=== PATIENT | female | born 1950 | race Caucasian/White ===

== ENCOUNTER 2017-11-12 00:14 | Emergency (ER) | payer MEDICARE ==
[2017-11-12 00:18] VITALS: TEMP 97.7
--- NOTE | 2017-11-12 01:04 | XR ---
EXAMINATION TYPE: XR knee complete LT DATE OF EXAM: 11/12/2017 COMPARISON: NONE HISTORY: Pain TECHNIQUE: 3 views FINDINGS: There is spurring of the femoral and tibial condyles. I see no fracture nor dislocation. Th ere is no significant joint space narrowing. IMPRESSION: Hypertrophic degenerative spur formation. No fracture.
--- NOTE | 2017-11-12 01:05 | XR ---
EXAMINATION TYPE: XR tibia fibula LT DATE OF EXAM: 11/12/2017 COMPARISON: NONE HISTORY: Pain TECHNIQUE: 4 views FINDINGS: There is a large plantar calcaneal spur. Tibia and fibula appear intact. There is spurring at the knee joint. I see no fracture. IMPRESSION: Calcaneal spurring. Osteoarthritis at the knee joint. No fracture seen.
--- NOTE | 2017-11-12 01:22 | ED ---
Lower Extremity Injury HPI - General Chief Complaint: Extremity Injury, Lower Stated Complaint: knee pain Time Seen by Provider: 11/12/17 00:28 Source: patient, RN notes reviewed Mode of arrival: ambulatory Limitations: no limitations - History of Present Illness Initial Comments: This is a 66-year-old old female who presents to the emergency department with chief complaint of left knee pain. Patient states she has been experiencing left knee pain for the past 2 weeks. She states that it was brought on after helping her daughter move. She states she was going up and down stairs and jumping in and out of a [employer]. Patient states the pain is made worse with bearing weight and ambulating as well as fully extending her knee. She states that she has been taking Motrin. She states that she presents to the emergency department this evening because she was unable to sleep due to the pain. Denies any other injuries or trauma. Denies any prior issues with her left knee. Denies fever, chills, chest pain, shortness of breath, abdominal pain, nausea or vomiting, constipation or diarrhea, dysuria or hematuria, numbness or tingling, headache or vision changes. - Related Data Home Medications Medication Instructions Recorded Confirmed No Known Home Medications [No 03/03/16 03/03/16 Known Home Medications] Allergies Allergy/AdvReac Type Severity Reaction Status Date / Time No Known Allergies Allergy Verified 11/12/17 00:18 Review of Systems ROS Statement: Those systems with pertinent positive or pertinent negative responses have been documented in the HPI. ROS Other: All systems not noted in ROS Statement are negative. Past Medical History Past Medical History: No Reported History History of Any Multi-Drug Resistant Organisms: None Reported Past Surgical History: Section Past Psychological History: No Psychological Hx Reported Smoking Status: Never smoker Past Alcohol Use History: None Reported Past Drug Use History: None Reported General Exam - General Exam Comments Initial Comments: General: Awake and alert, well-developed; in no apparent distress. is at bedside. HEENT: Head atraumatic, normocephalic. Pupils are equal, round and reactive to light. Extraocular movements intact. Oropharynx moist without erythema or exudate. Neck: Supple. Normal ROM. Cardiovascular: Regular rate and rhythm. No murmurs, rubs or gallops. Chest symmetrical. Respiratory: Lungs clear to auscultation bilaterally. No wheezes, rales or rhonchi. Normal respiratory effort with no use of accessory muscles. Musculoskeletal: Normal active range of motion of the left knee. There is tenderness on palpation of medial knee as well as proximal tibia. Mild soft tissue swelling noted. No erythema or contusions. Sensation is intact. Pedal pulses are 2+ equal and palpable bilaterally. There is tenderness on valgus stress. Skin: [place], warm and dry without rashes or lesions. Neurological: Alert and oriented x3. CN II-XII grossly intact. Speech is fluent and answers are appropriate. No focal neuro deficits. Psychiatric: Normal mood and affect. No overt signs of depression or anxiety noted. Limitations: no limitations Course Vital Signs 11/12/17 00:15 Temperature 97.7 F Pulse Rate 92 Respiratory 16 Rate Blood Pressure 132/62 O2 Sat by Pulse 98 Oximetry Medical Decision Making - Medical Decision Making This is a 66-year-old female who presented to the emergency department for evaluation of left knee pain. There is tenderness on palpation of medial joint line as well as proximal tibia. Mild soft tissue swelling noted. X-rays of knee revealed a hypertrophic changes but no acute fractures. X-ray of left tibia and fibula revealed no acute fractures or dislocations. Patient is able to bear weight and ambulate but pain is elicited. I recommended a knee immobilizer, however patient states that she has 70 Spandage at home that she has been using and declines. She will be given referral to orthopedics. Recommended rest, ice and elevation. Patient is in agreement with plan and voices understanding. She is in no acute distress and will be discharged home. All questions were answered. - Radiology Data Radiology results: report reviewed X-ray left knee impression: Hypertrophic degenerative spur formation. No fracture. X-ray left tibia and fibula impression: Calcaneal spurring. Osteoarthritis of the knee joint. No fracture seen. Disposition Clinical Impression: Acute internal derangement of knee Disposition: HOME SELF-CARE Condition: Good Instructions: Knee Sprain (ED) Additional Instructions: Please rest, ice and elevate. May take ibuprofen as needed for pain and inflammation. Please use your carlos alberto wrap. Please follow up with Dr. Amaya, orthopedics this morning. Please follow up with primary care provider within 1- 2 days. Return to emergency department if symptoms should worsen or any concerns arise. Referrals: Markell Walker MD [Primary Care Provider] - 1-2 days Ranjit Amaya MD [STAFF PHYSICIAN] - 1-2 days Time of Disposition: 01:29
[2017-11-12 01:50] VITALS: BP 124/58; PULSE 76; RESP 18
== END 2017-11-12 01:49 | disposition home or self-care (01) ==
LOC: EC 00:14
DX: M23.92 Unspecified internal derangement of left knee (principal)
CPT/HCPCS: 99283

== ENCOUNTER 2019-09-02 09:58 | Observation (INO) | payer MEDICARE ==
[2019-09-02] MEDS ORDERED: SODIUM CHLORIDE 0.9% 1,000 ML IV STA (10:22)
[2019-09-02 10:45] LABS: Basophils % (A) 1 %; Eosinophils # (A) 0.1 k/uL (0-0.7); Eosinophils % (A) 1 %; HCT 46.9 % (34.0-46.0); HGB 15.6 gm/dL (11.4-16.0); Lymphocytes # (A) 1.2 k/uL (1.0-4.8); Lymphocytes % (A) 16 %; MCH 28.6 pg (25.0-35.0); MCHC 33.2 g/dL (31.0-37.0); MCV 86.2 fL (80.0-100.0); Mean Platelet Volume 6.9; Monocytes # (A) 0.3 k/uL (0-1.0); Monocytes % (A) 3 %; Neutrophils # (A) 5.7 k/uL (1.3-7.7); Neutrophils % (A) 78 %; Platelet Count 276 k/uL (150-450); RBC 5.44 m/uL (3.80-5.40); RDW 12.5 % (11.5-15.5); WBC 7.4 k/uL (3.8-10.6)
[2019-09-02 10:47] LABS: Appearance,Urine Clear (Clear); Bilirubin,Urine Negative (Negative); Blood,Urine Negative (Negative); Color,Urine Yellow; Glucose,Urine (UA) Negative (Negative); Ketones,Urine Negative (Negative); Leukocyte Esterase,Urine Negative (Negative); Nitrite,Urine Negative (Negative); PH, Urine 7.5 (5.0-8.0); Protein,Urine Negative (Negative); Specific Gravity,Urine 1.014 (1.001-1.035); Urobilinogen,Urine <2.0 mg/dL (<2.0)
[2019-09-02 10:55] LABS: Albumin 4.5 g/dL (3.5-5.0); Calcium 9.9 mg/dL (8.4-10.2); Potassium 4.5 mmol/L (3.5-5.1); Total Bilirubin 0.6 mg/dL (0.2-1.3); Total Protein 7.2 g/dL (6.3-8.2)
[2019-09-02 11:00] LABS: INR 0.9 (<1.2); Partial Thromboplastin Time 23.9 sec (22.0-30.0); Prothrombin Time 9.8 sec (9.0-12.0)
[2019-09-02] MEDS ORDERED: MORPHINE SULFATE 2 MG/ML SYRINGE IVP ONE (11:14)
[2019-09-02] MEDS ORDERED: ONDANSETRON 4 MG/2 ML VIAL IVP STA (11:14)
--- NOTE | 2019-09-02 11:23 | ED ---
Abdominal Pain HPI - General Chief Complaint: Abdominal Pain Stated Complaint: abdominal pain/blood in stool Time Seen by Provider: 09/02/19 10:13 Source: patient, RN notes reviewed Mode of arrival: ambulatory Limitations: no limitations - History of Present Illness Initial Comments: 68-year-old female presents emergency Department chief complaint lower abdominal pain, cramping, and rectal bleeding. Patient states that symptoms started around 1 AM states that she went up and pain. Patient states that she's had prior C-sections no other abdominal surgeries. Patient denies any fevers chills slight nausea no vomiting states that she has had several bowel movements with bright red blood no rectal pain no hemorrhoids. Patient denies any chest pain or shortness of breath. Patient denies dysuria hematuria. - Related Data Home Medications Medication Instructions Recorded Confirmed No Known Home Medications 03/03/16 03/03/16 Allergies Allergy/AdvReac Type Severity Reaction Status Date / Time No Known Allergies Allergy Verified 09/02/19 10:12 Review of Systems ROS Statement: Those systems with pertinent positive or pertinent negative responses have been documented in the HPI. ROS Other: All systems not noted in ROS Statement are negative. Past Medical History Past Medical History: No Reported History History of Any Multi-Drug Resistant Organisms: None Reported Past Surgical History: Section Past Psychological History: No Psychological Hx Reported Smoking Status: Never smoker Past Alcohol Use History: None Reported Past Drug Use History: None Reported General Exam Limitations: no limitations General appearance: alert, in no apparent distress Head exam: Present: atraumatic, normocephalic, normal inspection Neck exam: Present: normal inspection. Absent: tenderness, meningismus, lymphadenopathy Respiratory exam: Present: normal lung sounds bilaterally. Absent: respiratory distress, wheezes, rales, rhonchi, stridor Cardiovascular Exam: Present: regular rate, normal rhythm, normal heart sounds. Absent: systolic murmur, diastolic murmur, rubs, gallop, clicks GI/Abdominal exam: Present: soft, tenderness, normal bowel sounds. Absent: distended, guarding, rebound, rigid Back exam: Absent: CVA tenderness (R), CVA tenderness (L) Neurological exam: Present: alert, oriented X3 Skin exam: Present: warm, dry, intact, normal color. Absent: rash Course Vital Signs 09/02/19 10:10 Temperature 98.2 F Pulse Rate 79 Respiratory 18 Rate Blood Pressure 147/79 O2 Sat by Pulse 95 Oximetry Medical Decision Making - Medical Decision Making Labs are essentially unremarkable, urinalysis within normal limits. Patient has extensive colitis on CT. Patient has had intermittent severe pain. Patient will be admitted for GI evaluation, antibiotics, fluids. - Lab Data Result diagrams: 09/02/19 10:25 09/02/19 10:25 Lab Results 09/02/19 09/02/19 09/02/19 Range/Units 10:25 10:25 10:25 WBC 7.4 (3.8-10.6) k/uL RBC 5.44 H (3.80-5.40) m/uL Hgb 15.6 (11.4-16.0) gm/dL Hct 46.9 H (34.0-46.0) % MCV 86.2 (80.0-100.0) fL MCH 28.6 (25.0-35.0) pg MCHC 33.2 (31.0-37.0) g/dL RDW 12.5 (11.5-15.5) % Plt Count 276 (150-450) k/uL Neutrophils % 78 % Lymphocytes % 16 % Monocytes % 3 % Eosinophils % 1 % Basophils % 1 % Neutrophils # 5.7 (1.3-7.7) k/uL Lymphocytes # 1.2 (1.0-4.8) k/uL Monocytes # 0.3 (0-1.0) k/uL Eosinophils # 0.1 (0-0.7) k/uL Basophils # 0.0 (0-0.2) k/uL PT (9.0-12.0) sec INR (<1.2) APTT (22.0-30.0) sec Sodium 142 (137-145) mmol/L Potassium 4.5 (3.5-5.1) mmol/L Chloride 109 H (98-107) mmol/L Carbon Dioxide 26 (22-30) mmol/L Anion Gap 7 mmol/L BUN 22 H (7-17) mg/dL Creatinine 0.79 (0.52-1.04) mg/dL Est GFR (CKD-EPI)AfAm 90 (>60 ml/min/1.73 sqM) Est GFR (CKD-EPI)NonAf 78 (>60 ml/min/1.73 sqM) Glucose 129 H (74-99) mg/dL Plasma Lactic Acid Shaan 0.9 (0.7-2.0) mmol/L Calcium 9.9 (8.4-10.2) mg/dL Total Bilirubin 0.6 (0.2-1.3) mg/dL AST 21 (14-36) U/L ALT 15 (4-34) U/L Alkaline Phosphatase 106 (38-126) U/L Total Protein 7.2 (6.3-8.2) g/dL Albumin 4.5 (3.5-5.0) g/dL Amylase 62 (30-110) U/L Lipase 81 (23-300) U/L Urine Color Urine Appearance (Clear) Urine pH (5.0-8.0) Ur Specific [place] (1.001-1.035) Urine Protein (Negative) Urine Glucose (UA) (Negative) Urine Ketones (Negative) Urine Blood (Negative) Urine Nitrite (Negative) Urine Bilirubin (Negative) Urine Urobilinogen (<2.0) mg/dL Ur Leukocyte Esterase (Negative) 09/02/19 09/02/19 Range/Units 10:25 10:25 WBC (3.8-10.6) k/uL RBC (3.80-5.40) m/uL Hgb (11.4-16.0) gm/dL Hct (34.0-46.0) % MCV (80.0-100.0) fL MCH (25.0-35.0) pg MCHC (31.0-37.0) g/dL RDW (11.5-15.5) % Plt Count (150-450) k/uL Neutrophils % % Lymphocytes % % Monocytes % % Eosinophils % % Basophils % % Neutrophils # (1.3-7.7) k/uL Lymphocytes # (1.0-4.8) k/uL Monocytes # (0-1.0) k/uL Eosinophils # (0-0.7) k/uL Basophils # (0-0.2) k/uL PT 9.8 (9.0-12.0) sec INR 0.9 (<1.2) APTT 23.9 (22.0-30.0) sec Sodium (137-145) mmol/L Potassium (3.5-5.1) mmol/L Chloride (98-107) mmol/L Carbon Dioxide (22-30) mmol/L Anion Gap mmol/L BUN (7-17) mg/dL Creatinine (0.52-1.04) mg/dL Est GFR (CKD-EPI)AfAm (>60 ml/min/1.73 sqM) Est GFR (CKD-EPI)NonAf (>60 ml/min/1.73 sqM) Glucose (74-99) mg/dL Plasma Lactic Acid Sh[place] (0.7-2.0) mmol/L Calcium (8.4-10.2) mg/dL Total Bilirubin (0.2-1.3) mg/dL AST (14-36) U/L ALT (4-34) U/L Alkaline Phosphatase (38-126) U/L Total Protein (6.3-8.2) g/dL Albumin (3.5-5.0) g/dL Amylase (30-110) U/L Lipase (23-300) U/L Urine Color Yellow Urine Appearance Clear (Clear) Urine pH 7.5 (5.0-8.0) Ur Specific [place] 1.014 (1.001-1.035) Urine Protein Negative (Negative) Urine Glucose (UA) Negative (Negative) Urine Ketones Negative (Negative) Urine Blood Negative (Negative) Urine Nitrite Negative (Negative) Urine Bilirubin Negative (Negative) Urine Urobilinogen <2.0 (<2.0) mg/dL Ur Leukocyte Esterase Negative (Negative) Disposition Clinical Impression: Colitis Disposition: ADMITTED IP TO THIS [facility] Condition: Stable Referrals: Markell Walker MD [Primary Care Provider] - 1-2 days
--- NOTE | 2019-09-02 11:32 | CT ---
EXAMINATION TYPE: CT abdomen pelvis w con DATE OF EXAM: 09/02/2019 HISTORY: Rectal bleeding, lower abd pain CT DLP: 861.4mGycm Automated Exposure Control for Dose Reduction was Utilized. CONTRAST: CT scan of the abdomen and pelvis is performed without oral but with IV Contrast, patient injected wi th 100 mL of Isovue 300. COMPARISON: None. FINDINGS: LUNG BASES: Mild cardiomegaly. LIVER/GB: No significant abnormality is appreciated. PANCREAS: No significant abnormality is seen. SPLEEN: No significant abnormality is seen. ADRENALS: No significant abnormality is seen. KIDNEYS: Subcentimeter low dense lesion posteriorly mid to lower pole of right kidney axial image 32 is too small to further characterize presumed benign. Symmetric cortical uptake and excretion without hydronephrosis seen bilaterally. BOWEL: Evaluation bowel suboptimal secondary to lack of enteric contrast. Small hiatal hernia is pres ent. There is no suspicious small or large bowel dilatation. Normal-appearing appendix is seen from c ecum to the right lower quadrant. There is [id number] wall thickening beginning at level of hep atic flexure extending contiguously through the entire transverse colon and left colon up to proximal sigmoid colon level. There is perhaps mild fat stranding along the course of the left colon. No pneu moperitoneum. No well-formed abscess. UTERUS/ADNEXA: Anteverted uterus. LYMPH NODES: No greater than 1cm abdominal or pelvic lymph nodes are appreciated. OSSEOUS STRUCTURES: Slight scoliotic curvature. Fairly moderate narrowing of both hip joints. OTHER: No significant additional abnormality is seen. IMPRESSION: There is a [id number] fairly long segment acute uncomplicated colitis from hepatic flexure through the entire left colon. Differential includes infectious and inflammatory etiologies. Correlate clinically.
[2019-09-02] MEDS ORDERED: metroNIDAZOLE-NS PMX 500 MG in SALINE 1 100ML.BAG IVPB STA (11:45)
[2019-09-02] MEDS ORDERED: LEVOFLOXACIN 750MG-D5W PMX 750 MG in DEXTROSE/WATER 1 150ML.BAG IVPB STA (11:45)
[2019-09-02] MEDS ORDERED: methylPREDNISolone SOD SUCCI 125 MG/2 ML VIAL IV STA (11:45)
[2019-09-02] MEDS ORDERED: NALOXONE 0.4 MG/ML 1 ML VIAL IV PRN (11:46)
[2019-09-02] MEDS ORDERED: ONDANSETRON 4 MG/2 ML VIAL IVP PRN (11:46)
[2019-09-02] MEDS ORDERED: HYDROcodone/APAP 5-325MG 1 EACH TAB PO PRN (11:46)
[2019-09-02] MEDS: SODIUM CHLORIDE 0.9% 1,000 ML IV SCH (12:20)
--- NOTE | 2019-09-02 15:50 | P.HPIM ---
History of Present Illness H&P Date: 09/02/19 Chief Complaint: Abdominal pain 68-year-old female with no PMH presents the ED for lower abdominal pain, diarrhea and hematochezia. Patient states that she woke up last night with acute onset lower abdominal pain. Patient described the pain as cramping in nature and midline. Pain is 8 out of 10 in severity and does not radiate. Patient was able to have a bowel movement last night that she described as solid. She woke up this morning, she attempted to have a bowel movement but noticed blood which prompted her to come to the ED. Patient states that the blood is bright red and colds the stool. She denies any mucus in her stool. Patient states that her diet has been normal and she has had no sick contacts. She did report eating a arredondo soup from [employer]. Patient reports a colonoscopy 9 years ago which she was diagnosed with diverticulosis. She says her PCP has diagnosed her with IBS. She denies any headaches, lower extremity edema, nausea or vomiting, fever or chills, cough, chest pain, shortness of breath, palpitations, changes in urination or no changes in appetite or weight. In the ED, her vital signs are stable. CBC showed hematocrit of 46.9. Coagulation panel was negative. CMP showed chloride of 109, BUN of 22. Glucose was 129. Lactic acid was negative. Lipase and amylase was negative. Urinalysis was negative. CT of the abdomen pelvis shows colitis. Patient is admitted for GI evaluation and further workup. Review of Systems Pertinent positives and negatives as discussed in HPI, a complete review of systems was performed and all other systems are negative. Past Medical History Past Medical History: Osteoarthritis (OA), Pneumonia, Renal Disease Additional Past Medical History / Comment(s): IBS, diverticular disease, nephrolithiasis-passed stones on her own, bronchitis, arthritis bilateral knees, UTIs. History of Any Multi-Drug Resistant Organisms: None Reported Past Surgical History: Section, Tonsillectomy Additional Past Surgical History / Comment(s): C-Sections x 2, colonoscopy/benign polypectomy Past Anesthesia/Blood Transfusion Reactions: No Reported Reaction Smoking Status: Former smoker - Past Family History Father Additional Family Medical History / Comment(s): Father had heart disease Mother Family Medical History: Cancer Additional Family Medical History / Comment(s): Mother had colon cancer. Medications and Allergies Home Medications Medication Instructions Recorded Confirmed Type Aspirin/Acetaminophen/Caffeine 1 tab PO Q12H PRN 09/02/19 09/02/19 History [Excedrin Extra Strength Caplet] Allergies Allergy/AdvReac Type Severity Reaction Status Date / Time No Known Allergies Allergy Verified 09/02/19 11:51 Physical Exam Vitals: Vital Signs Temp Pulse Pulse Resp BP BP Pulse Ox 09/02/19 12:55 97.9 F 76 17 133/80 100 09/02/19 12:14 98.2 F 67 18 126/74 96 09/02/19 10:10 98.2 F 79 18 147/79 95 Intake and Output 09/02/19 09/02/19 09/02/19 06:59 14:59 22:59 Intake Total 100 Balance 100 Intake: Intake, IV Titration 100 Amount metroNIDAZOLE-NS PMX 500 100 mg In Saline 1 100ml.bag @ 100 mls/hr IVPB ONCE STA Rx#:[id number] Other: Voiding Method Toilet Weight 72.575 kg General: [non toxic], [no distress], [appears at stated age] Derm: [warm], [dry] Head: [atraumatic], [normocephalic], [symmetric] Eyes: [EOMI], [no lid lag], [anicteric sclera] Mouth: [no lip lesion], [mucus membranes moist] Cardiovascular: [S1S2 reg], [no murmur], [positive posterior tibial pulse bilateral], Lungs: [CTA bilateral], [no rhonchi, no rales] , [no accessory muscle use] Abdominal: [soft], [ nontender to palpation], [no guarding], [no appreciable or ganomegaly] Ext: [no gross muscle atrophy], [no edema], [no contractures] Neuro: [ CN II-XI grossly intact], [no focal neuro deficits] Psych: [Alert], [oriented], [appropriate affect] Results CBC & Chem 7: 09/02/19 10:25 09/02/19 10:25 Labs: Abnormal Lab Results - Last 24 Hours (Table) 09/02/19 09/02/19 Range/Units 10:25 10:25 RBC 5.44 H (3.80-5.40) m/uL Hct 46.9 H (34.0-46.0) % Chloride 109 H (98-107) mmol/L BUN 22 H (7-17) mg/dL Glucose 129 H (74-99) mg/dL Thrombosis Risk Factor Assmnt - Choose All That Apply Any of the Below Risk Factors Present?: Yes Each Factor Represents 1 point: Obesity (BMI >25) Other Risk Factors: Yes Each Risk Factor Represents 2 Points: Age 61-74 years Other congenital or acquired thrombophilia - If yes, enter type in comment: No Thrombosis Risk Factor Assessment Total Risk Factor Score: 3 Thrombosis Risk Factor Assessment Level: Moderate Risk Assessment and Plan Assessment: Abdominal pain related to colitis Elevated BUN Obesity CT abdomen pelvis shows colitis. Patient reports no previous history. Likely infectious. Plans: Start Flagyl and levofloxacin IV. Tylenol or [place] for pain management. Zofran as needed for nausea or vomiting. Stool for culture and WBCs. Follow C. diff. Follow GI consultation. BUN 22. Likely due to hematochezia. Plans: Continue normal saline at 75 mL per hour. Repeat BMP tomorrow morning. Plans: Structured weight loss program. DVT prophylaxis: [SCD] Discussed with: [Patient] Anticipated discharge: [1-2 days] Anticipated discharge place: [Home] A total of [35] minutes was spent on the care of this complex patient more than 50% of the time was spent in counseling and care coordination. Patient would like to be full code. Patient names her Adolfo decision maker if she can't make decisions for herself.
[2019-09-02] MEDS: metroNIDAZOLE-NS PMX 500 MG in SALINE 1 100ML.BAG IVPB SCH ×2 (17:44→23:54)
[2019-09-02 21:41] VITALS: RESP 18
[2019-09-03] MEDS: ACETAMINOPHEN TAB 325 MG TAB PO PRN ×2 (01:03→07:19)
[2019-09-03 05:00] VITALS: BP 97/55; PULSE 70; TEMP 98.2
[2019-09-03] MEDS: SODIUM CHLORIDE 0.9% 1,000 ML IV SCH (05:56)
[2019-09-03] MEDS: metroNIDAZOLE-NS PMX 500 MG in SALINE 1 100ML.BAG IVPB SCH (07:15)
[2019-09-03 10:41] LABS: Basophils % (A) 0 %; Eosinophils % (A) 0 %; HCT 41.4 % (34.0-46.0); HGB 13.5 gm/dL (11.4-16.0); Lymphocytes # (A) 1.4 k/uL (1.0-4.8); Lymphocytes % (A) 12 %; MCHC 32.6 g/dL (31.0-37.0); Mean Platelet Volume 7.3; Monocytes # (A) 0.6 k/uL (0-1.0); Monocytes % (A) 5 %; Neutrophils # (A) 9.5 k/uL (1.3-7.7); Neutrophils % (A) 82 %; Platelet Count 244 k/uL (150-450); RBC 4.66 m/uL (3.80-5.40); RDW 12.7 % (11.5-15.5); WBC 11.6 k/uL (3.8-10.6)
--- NOTE | 2019-09-03 11:37 | P.DS ---
Providers Date of admission: 09/02/19 11:42 Expected date of discharge: 09/03/19 Attending physician: Vale Torres MD Consults: 09/02/19 11:46 Consult Physician Stat Consulting Provider: Apoorva Marcos Consult Reason/Comments: Colitis, rectal bleeding Do you want consulting provider notified?: Yes Primary care physician: Markell Obrien [facility] Course: 68-year-old female with no PMH presents the ED for lower abdominal pain, diarrhea and hematochezia. Patient states that she woke up last night with acute onset lower abdominal pain. Patient described the pain as cramping in nature and midline. Pain is 8 out of 10 in severity and does not radiate. Patient was able to have a bowel movement last night that she described as solid. She woke up this morning, she attempted to have a bowel movement but noticed blood which prompted her to come to the ED. Patient states that the blood is bright red and colds the stool. She denies any mucus in her stool. Patient states that her diet has been normal and she has had no sick contacts. She did report eating a arredondo soup from [employer]. Patient reports a colonoscopy 9 years ago which she was diagnosed with diverticulosis. She says her PCP has diagnosed her with IBS. She denies any headaches, lower extremity edema, nausea or vomiting, fever or chills, cough, chest pain, shortness of breath, palpitations, changes in urination or no changes in appetite or weight. In the ED, her vital signs are stable. CBC showed hematocrit of 46.9. Coagulation panel was negative. CMP showed chloride of 109, BUN of 22. Glucose was 129. Lactic acid was negative. Lipase and amylase was negative. Urinalysis was negative. CT of the abdomen pelvis shows colitis. Patient is admitted for GI evaluation and further workup. Patient was started on Flagyl and levofloxacin IV for her colitis. She was given Tylenol or [place] as needed for pain. She was given Zofran as needed for nausea or vomiting. Stool for culture and WBC was ordered. C. diff was also ordered. Patient did not have a bowel movement on day one of admission. Patient had a mild leukocytosis of 11.6 that was likely related to the steroid injection that she received on admission. Her hemoglobin remained stable from 15.6-13.5 which is thought to be partially dilutional due to IVF. GI was consulted as well. Patient was seen and examined. No acute events overnight. Patient reports complete resolution of her abdominal pain. No nausea or vomiting. No fever or chills. Tolerating full liquid diet well. General: [non toxic], [no distress], [appears at stated age] Derm: [warm], [dry] Head: [atraumatic], [normocephalic], [symmetric] Eyes: [EOMI], [no lid lag], [anicteric sclera] Mouth: [no lip lesion], [mucus membranes moist] Cardiovascular: [S1S2 reg], [no murmur], [positive posterior tibial pulse bilateral], Lungs: [CTA bilateral], [no rhonchi, no rales] , [no accessory muscle use] Abdominal: [soft], [ nontender to palpation], [no guarding], [no appreciable organomegaly] Ext: [no gross muscle atrophy], [no edema], [no contractures] Neuro: [no focal neuro deficits] Psych: [Alert], [oriented], [appropriate affect] Abdominal pain related to colitis Leukocytosis Elevated BUN Obesity CT abdomen pelvis shows colitis. Patient reports no previous history. Likely infectious. Plans: Start Flagyl and levofloxacin IV. Tylenol or [place] for pain management. Zofran as needed for nausea or vomiting. Stool for culture and WBCs. Follow C. diff. Follow GI consultation. WBC count 11.6. Likely related to Solu-Medrol. Plans: No signs of infection. Continue to monitor. BUN 22. Likely due to hematochezia. Plans: Continue normal saline at 75 mL per hour. Repeat BMP tomorrow morning. Plans: Structured weight loss program. [Patient is asymptomatic. She is hemodynamically stable. Possible DC home today if agreeable by GI. Needs colonoscopy after resolution of colitis.] Pertinent Studies: Chest x-ray, CT abdomen and pelvis Patient Condition at Discharge: Stable Plan - Discharge Summary Discharge Rx Participant: No New Discharge Prescriptions: New Ciprofloxacin HCl [Cipro] 500 mg PO Q12H 6 Days #12 tab metroNIDAZOLE [Flagyl] 500 mg PO Q8HR #18 tab Continue Aspirin/Acetaminophen/Caffeine [Excedrin Extra Strength Caplet] 1 tab PO Q12H PRN PRN Reason: Migraine Headache Discharge Medication List Aspirin/Acetaminophen/Caffeine [Excedrin Extra Strength Caplet] 1 tab PO Q12H PRN 09/02/19 [History] Ciprofloxacin HCl [Cipro] 500 mg PO Q12H 6 Days #12 tab 09/03/19 [Rx] metroNIDAZOLE [Flagyl] 500 mg PO Q8HR #18 tab 09/03/19 [Rx] Follow up Appointment(s)/Referral(s): Markell Walker MD [Primary Care Provider] - 1-2 days Apoorva Marcos MD [STAFF PHYSICIAN] - 1 Week Activity/Diet/Wound Care/Special Instructions: Diet: Fiber rich Follow-up PCP within 3 days of discharge. Follow-up with GI within 1 week of discharge. He will need a colonoscopy after your colitis results. Take all medications as advised. Discharge Disposition: HOME SELF-CARE
[2019-09-03] MEDS ORDERED: KETOROLAC 30 MG/ML 1 ML VIAL IVP SCH (12:00)
[2019-09-03] MEDS ORDERED: LEVOFLOXACIN 750MG-D5W PMX 750 MG in DEXTROSE/WATER 1 150ML.BAG IVPB SCH (14:00)
--- NOTE | 2019-09-03 22:08 | CONS ---
CONSULTATION DATE OF SERVICE: September 03, 2019 REQUESTING PHYSICIAN: Dr. Romero Walker. REASON FOR CONSULTATION: Abdominal pain/bloody diarrhea and acute colitis. HISTORY OF PRESENT ILLNESS: The patient is a 68-year-old pleasant white female came to the emergency room in the morning complaining of severe lower abdominal pain that started acutely around midnight. The pain continued to progressively get worse following which she had multiple episodes of bright red blood per rectum. She had about 4 or 5 episodes and came to the emergency room in the morning and subsequently admitted to the hospital for further evaluation. She did have a CT of the abdomen and pelvis done in the emergency room that showed thickening of the colon involving the distal transverse colon all the way into the left colon consistent with acute colitis. The patient was started on empiric antibiotics with Levaquin and Flagyl. This morning she is feeling much better. Abdominal pain. She still has some mild epigastric abdominal pain. No further episodes of bleeding. She never had these symptoms in the past. She reports no fever, chills, night sweats. No other family members with these symptoms. Her last colonoscopy was about 9 years ago. PAST MEDICAL HISTORY: Significant for irritable bowel syndrome, diverticular disease. PAST SURGICAL HISTORY: , tonsillectomy. MEDICATIONS: At home include aspirin. ALLERGIES: No known drug allergies. SOCIAL HISTORY: No smoking. No alcohol use. FAMILY HISTORY: Mother, father had coronary artery disease. Mother had colon cancer. REVIEW OF SYSTEMS: CARDIOPULMONARY: No chest pain. No shortness of breath. GENITOURINARY: No dysuria unremarkable. SKIN unremarkable. ENDOCRINE unremarkable. PSYCHIATRIC unremarkable. ENT/VISION: Unremarkable. Neurology unremarkable. ENT/vision unremarkable. CONSTITUTIONAL: No recent weight loss. No fever, chills, night sweats. PHYSICAL EXAMINATION: Blood pressure 97/55, pulse is 78, temperature 98.2. HEENT examination unremarkable. Conjunctivae pink. Sclerae anicteric. Oral cavity no lesions. NECK: No JVD or lymph node enlargement. CHEST: Clear to auscultation. HEART: Regular rate and rhythm. ABDOMEN: Soft. Bowel sounds are positive. No organomegaly. EXTREMITIES: No pedal edema. Skin no rashes. NEUROLOGIC: Alert and oriented x3. No focal deficits. LABS: Done from yesterday showed WBC 7.4, hemoglobin 15.6, platelets normal. Basic metabolic panel is within normal limits. A CT of the abdomen showed thickening of the left colon up to the distal transverse colon consistent with acute colitis. IMPRESSION: This is a patient who presents to the hospital with acute onset of severe lower abdominal pain followed by bloody diarrhea that started 2 nights ago. She had multiple episodes of bright red blood per rectum. Came to the emergency room, had a CT scan that showed left-sided colitis and the clinical picture is very consistent with acute ischemic colitis. However, possibility of infectious colitis cannot be excluded. Initial hemoglobin of 15.6 g/dL. The patient was started on empiric antibiotics and this morning has no further episodes of bleeding. RECOMMENDATIONS: 1. Advance to full liquid diet. 2. Repeat labs today. 3. If she continues to do well with no recurrent symptoms, she can be discharged home later today or tomorrow morning. 4. We will plan on a colonoscopy on an outpatient basis in 3-4 weeks. Thank you for this consultation. CARMEN / JOSEFINA: [id number] /
== END 2019-09-03 13:05 | disposition home or self-care (01) ==
LOC: EC 09:58 → 5NMEDONC 11:42
PROVIDERS: ADMIT Family Medicine; ATTEND Family Medicine
DX: K52.9 Noninfective gastroenteritis and colitis, unspecified (principal); D72.829 Elevated white blood cell count, unspecified; R94.4 Abnormal results of kidney function studies; E66.9 Obesity, unspecified; K57.30 Diverticulosis of large intestine without perforation or abscess without bleeding; K58.9 Irritable bowel syndrome, unspecified; M17.0 Bilateral primary osteoarthritis of knee; Z68.31 Body mass index [BMI] 31.0-31.9, adult; Z98.890 Other specified postprocedural states; Z87.01 Personal history of pneumonia (recurrent); Z87.442 Personal history of urinary calculi; Z87.09 Personal history of other diseases of the respiratory system; Z87.440 Personal history of urinary (tract) infections; Z90.89 Acquired absence of other organs; Z86.010 Personal history of colon polyps; Z87.891 Personal history of nicotine dependence; Z82.49 Family history of ischemic heart disease and other diseases of the circulatory system; Z80.0 Family history of malignant neoplasm of digestive organs
CPT/HCPCS: 96376; 96365; 96366 ×2; 96367; 96375 ×2; 96361; 99285; 36415; 80053; 82150; 83605; 83690; 85025 ×2; 85610; 85730; 81003; 87040; 74177; G0378 ×2; J2930; J1885; J1956; Q9967